=== PATIENT | female | born 1940 | race Caucasian/White ===

== ENCOUNTER → 2021-05-02 08:26 | Outpatient (BNVA) | payer MEDICARE, SELFPAY | PROVIDERS: PCP Family Medicine; Visit Provider Internal Medicine Rheumatology | DX: M05.79 Rheumatoid arthritis with rheumatoid factor of multiple sites without organ or systems involvement (principal); Z79.899 Other long term (current) drug therapy; Z11.59 Encounter for screening for other viral diseases; Z11.1 Encounter for screening for respiratory tuberculosis; R68.2 Dry mouth, unspecified; I73.00 Raynaud's syndrome without gangrene; Z71.85 Encounter for immunization safety counseling; M19.90 Unspecified osteoarthritis, unspecified site | CPT/HCPCS: 36415; 71046; 73130; 73630; 80076; 82306; 82565; 85025; 85651; 86038; 86140; 86200; 86480; 86704; 86803; 87340; 99204 ==

== ENCOUNTER 2021-05-02 10:38 | Outpatient (CLI) | payer MEDICARE, SELFPAY ==
--- NOTE | 2021-05-02 10:47 | XRR_ITS ---
PROCEDURE INFORMATION: Exam: XR Left Foot Exam date and time: 05/02/2021 10:47 AM Age: 80 years old Clinical indication: Chronic pain. Osteoarthritis of the feet/ankles. Diagnosed with rheumatoid arthritis. TECHNIQUE: Imaging protocol: XR Left foot. Views: 3 or more views. COMPARISON: No relevant prior studies available. FINDINGS: Bones/joints: Mild degenerative changes at the 1st tarsometatarsal and metatarsophalangeal joints. Mild to moderate scattered degenerative changes in the midfoot. Plantar calcaneal spur. Probable calcific tendinosis of the distal Achilles. No tibiotalar joint effusion. No fracture, dislocation or subluxation. Soft tissues: No significant soft tissue swelling. XR/XR foot LT min 3V* [id number] IMPRESSION: 1. Mild degenerative changes at the 1st tarsometatarsal and metatarsophalangeal joints. 2. Mild to moderate scattered degenerative changes in the midfoot. 3. Plantar calcaneal spur. 4. Probable calcific tendinosis of the distal Achilles. 5. No acute fracture.
--- NOTE | 2021-05-02 10:47 | XRR_ITS ---
PROCEDURE INFORMATION: Exam: XR Right Hand Exam date and time: 05/02/2021 10:47 AM Age: 80 years old Clinical indication: Osteoarthritis of the hands. Diagnosed with rheumatoid arthritis. TECHNIQUE: Imaging protocol: XR Right hand. Views: 3 or more views. COMPARISON: No relevant prior studies available. FINDINGS: Bones/joints: Apparent lucent lesion in the proximal phalanx of the index finger only identified on the lateral view. There is an apparent lucent lesion in the proximal 5th metacarpal. Moderate degenerative changes at the triscaphe and 1st metacarpophalangeal joints. Additional [id number] scattered degenerative changes are noted most prominent at the distal interphalangeal joints and 2nd metacarpophalangeal joint. The 1st carpometacarpal joint is fused. Chondrocalcinosis is noted. The scapholunate and lunotriquetral intervals are maintained. The bones appear demineralized. Soft tissues: There is soft tissue swelling adjacent to the distal interphalangeal joints. XR/XR hand RT min 3V* [id number] IMPRESSION: 1. Moderate degenerative changes at the triscaphe and 1st metacarpophalangeal joints. Additional [id number]-sa-csowgaid scattered degenerative changes are noted most prominent at the distal interphalangeal joints and 2nd metacarpophalangeal joint. 2. Apparent lucent lesion in the proximal phalanx of the index finger only identified on the lateral view. There is an apparent lucent lesion in the proximal 5th metacarpal. Recommend CT to better characterize. 3. Chondrocalcinosis. 4. The bones appear demineralized.
--- NOTE | 2021-05-02 10:47 | XRR_ITS ---
PROCEDURE INFORMATION: Exam: XR Left Hand Exam date and time: 05/02/2021 10:47 AM Age: 80 years old Clinical indication: Osteoarthritis of the hands. Diagnosed with rheumatoid arthritis. TECHNIQUE: Imaging protocol: XR Left hand. Views: 3 or more views. COMPARISON: No relevant prior studies available. FINDINGS: Bones/joints: Probable old nondisplaced fracture of the proximal 1st metacarpal with mild residual deformity. Correlate for tenderness. Moderate to advanced degenerative changes at the triscaphe and 1st carpometacarpal joints. Mild degenerative changes at the distal interphalangeal joints. There are [id number]-cr-[id number] degenerative changes at the 1st and 2nd metacarpophalangeal joints. An ossicle adjacent to the distal ulna likely reflects remote trauma. Chondrocalcinosis is noted. No acute fracture, dislocation or subluxation is seen. The scapholunate and lunotriquetral intervals are maintained. Soft tissues: There is dorsal soft tissue swelling at the level of the metacarpophalangeal joints. XR/XR hand LT min 3V* [id number] IMPRESSION: 1. Variable degenerative changes as above. 2. Probable old nondisplaced fracture of the proximal 1st metacarpal with mild residual deformity. Correlate for tenderness. 3. Dorsal soft tissue swelling. 4. Chondrocalcinosis.
--- NOTE | 2021-05-02 10:47 | XRR_ITS ---
PROCEDURE INFORMATION: Exam: XR Chest Exam date and time: 05/02/2021 10:47 AM Age: 80 years old Clinical indication: Osteoarthritis. Prior left breast surgery for tumor. Diagnosed with rheumatoid arthritis. Chronic pain. TECHNIQUE: Imaging protocol: XR of the chest. Views: 2 views. COMPARISON: No relevant prior studies available. FINDINGS: Lungs: There are bibasilar nodules. A nodule at the right base measures 1.2 cm. A nodule at the left base measures 0.6 cm. Possible patchy hazy infiltrate in the left costophrenic angle. Pleural spaces: No pleural effusion. No pneumothorax. Heart/Mediastinum: The heart appears enlarged. No gross evidence of pneumomediastinum. Bones/joints: No gross fracture. XR/XR chest 2V* [id number] IMPRESSION: 1. Bibasilar nodules measuring up to 1.2 cm. 2. Possible patchy hazy infiltrate in the left costophrenic angle. 3. The heart appears enlarged. 4. Recommend CT chest to further assess.
--- NOTE | 2021-05-02 10:47 | XRR_ITS ---
PROCEDURE INFORMATION: Exam: XR Right Foot Exam date and time: 05/02/2021 10:47 AM Age: 80 years old Clinical indication: Chronic pain. Osteoarthritis of the feet/ankles. Diagnosed with rheumatoid arthritis. TECHNIQUE: Imaging protocol: XR Right foot. Views: 3 or more views. COMPARISON: No relevant prior studies available. FINDINGS: Bones/joints: There is deformity involving the proximal phalanges of the 2nd and 5th toes likely reflecting remote trauma. There is deformity of the diaphysis of the 3rd metatarsal that is likely chronic. Moderate to advanced osteoarthritis at the 1st metacarpophalangeal joint. Nepp-gn-[id number] scattered degenerative changes in the midfoot. Posterior and plantar calcaneal spurs. No tibiotalar joint effusion. Curvilinear calcification along the dorsal aspect of the distal talus that could reflect a dystrophic calcification or fracture fragment. No acute fracture, dislocation or subluxation is seen. Soft tissues: No significant soft tissue swelling. XR/XR foot RT min 3V* [id number] IMPRESSION: 1. Curvilinear calcification along the dorsal aspect of the distal talus that could reflect a dystrophic calcification or fracture fragment. Correlate for tenderness. 2. Moderate to advanced osteoarthritis at the 1st metacarpophalangeal joint. 3. Zjiy-ln-ptutufqi scattered degenerative changes in the midfoot. 4. Posterior and plantar calcaneal spurs.
[2021-05-02 11:45] LABS: Basophils % 0.4 %; Eosinophils # 0.1 10^3/uL (0.0-0.8); Eosinophils % 1.6 %; Hematocrit 40.3 % (37.0-47.0); Hemoglobin 13.3 g/dL (11.5-15.3); Lymphocytes # 1.2 10^3/uL (0.8-4.8); Lymphocytes % 15.7 %; Mean Corpuscular Hemoglobin 32.1 pg (28.0-34.0); Mean Corpuscular Volume 97.3 fl (81-99); Monocytes # 0.6 10^3/uL (0.2-0.9); Monocytes % 8.2 %; Neutrophils # 5.52 10^3/uL (1.8-7.7); Neutrophils % 73.8 %; Nucleated Red Blood Cells % 0 %; Platelet Count 353 10^3/cmm (130-400); Red Blood Count 4.14 10^6/uL (4.1-5.3); Red Cell Distribution Width 13.6 % (12.1-15.1); White Blood Count 7.5 10^3/uL (4.0-10.0)
[2021-05-02 12:06] LABS: Alanine Aminotransferase 13 U/L (0-33); Albumin Level 4.1 g/dL (3.5-5.2); Alkaline Phosphatase 87 IU/L (35-105); Aspartate Amino Transferase 15 U/L (0-32); C Reactive Protein 6.1 mg/L (0.0-4.9); Erythrocyte Sedimentation Rate 12 mm/hr (0-15); Globulin 2.3 g/dL (1.3-4.6); Total Bilirubin 0.2 mg/dL (0.15-1.2); Total Protein 6.4 g/dL (6.6-8.7)
[2021-05-02 12:21] LABS: 25 Hydroxy Vitamin D 58 ng/mL (30-100)
[2021-05-02 12:25] LABS: Hepatitis B Core AB, Total Non-Reactive (Nonreactive); Hepatitis B Surface Antigen Non-Reactive (Nonreactive); Hepatitis C Virus Antibody Non-Reactive (Nonreactive)
[2021-05-03 15:19] LABS: Cyclic Citrullinated Peptide <16 UNITS
[2021-05-04 11:38] LABS: Anti-Nuclear Antibody Pattern Nuclear, Nucleolar; Anti-Nuclear Antibody Screen POSITIVE (NEGATIVE)
[2021-05-04 13:02] LABS: Quantiferon Mitogen 8.16 IU/mL; Quantiferon Nil 0.03 IU/mL; Quantiferon Plus TB1 0.01 IU/mL; Quantiferon Plus TB2 0.01 IU/mL; Quantiferon TB Gold NEGATIVE (NEGATIVE)
== END 2021-05-02 10:39 | disposition home or self-care (01) ==
PROVIDERS: PCP Family Medicine; Visit Provider Internal Medicine Rheumatology
DX: M19.90 Unspecified osteoarthritis, unspecified site (principal); Z79.899 Other long term (current) drug therapy; Z11.59 Encounter for screening for other viral diseases; Z11.1 Encounter for screening for respiratory tuberculosis
CPT/HCPCS: 36415; 71046; 73130; 73630; 80076; 82306; 82565; 85025; 85651; 86038; 86140; 86200; 86480; 86704; 86803; 87340

== ENCOUNTER 2021-05-31 10:04 | Outpatient (CLI) | payer MEDICARE, SELFPAY ==
[2021-05-31 11:35] LABS: Basophils % 0.4 %; Eosinophils # 0.1 10^3/uL (0.0-0.8); Eosinophils % 1.3 %; Hematocrit 40.4 % (37.0-47.0); Hemoglobin 13.1 g/dL (11.5-15.3); Lymphocytes # 1.2 10^3/uL (0.8-4.8); Lymphocytes % 14.5 %; Mean Corpuscular HGB Conc 32.4 g/dL (30.0-36.0); Mean Corpuscular Hemoglobin 31.6 pg (28.0-34.0); Mean Corpuscular Volume 97.6 fl (81-99); Mean Platelet Volume 9.3 fL (7.4-10.4); Monocytes # 0.7 10^3/uL (0.2-0.9); Monocytes % 8.1 %; Neutrophils % 75.1 %; Nucleated Red Blood Cells % 0 %; Platelet Count 336 10^3/cmm (130-400); Red Blood Count 4.14 10^6/uL (4.1-5.3); Red Cell Distribution Width 13.7 % (12.1-15.1)
[2021-05-31 12:02] LABS: Alanine Aminotransferase 14 U/L (0-33); Albumin Level 4.1 g/dL (3.5-5.2); Alkaline Phosphatase 95 IU/L (35-105); Aspartate Amino Transferase 16 U/L (0-32); C Reactive Protein 6.3 mg/L (0.0-4.9); Globulin 2.3 g/dL (1.3-4.6); Total Bilirubin 0.2 mg/dL (0.15-1.2); Total Protein 6.4 g/dL (6.6-8.7)
[2021-06-01 12:07] LABS: COMPLEMENT, TOTAL (CH50) >60 U/mL (31-60)
[2021-06-01 13:23] LABS: CENTROMERE B ANTIBODY <1.0 NEG AI (<1.0 NEG); JO-1 ANTIBODY <1.0 NEG AI (<1.0 NEG); RNP ANTIBODY <1.0 NEG AI (<1.0 NEG); SCL-70 ANTIBODY <1.0 NEG AI (<1.0 NEG); SJOGREN'S ANTIBODY (SS-A) <1.0 NEG AI (<1.0 NEG); SM ANTIBODY <1.0 NEG AI (<1.0 NEG); SS-B <1.0 NEG AI (<1.0 NEG)
[2021-06-01 14:47] LABS: COMPLEMENT COMPONENT C3C 118 mg/dL; COMPLEMENT COMPONENT C4C 27 mg/dL
[2021-06-01 15:06] LABS: THYROID PEROXIDASE ANTIBODIES <1 IU/mL (<9)
[2021-06-02 16:36] LABS: ANA PATTERN Nuclear, Nucleolar; ANA SCREEN, IFA POSITIVE (NEGATIVE); Anti-Nuclear AB Pattern #2 Nuclear, Speckled; Anti-Nuclear Antibody Titer #2 1:40 titer
[2021-06-04 12:03] LABS: DNA AB (DS) CRITHIDIA,IFA NEGATIVE (NEGATIVE)
== END 2021-05-31 10:05 | disposition home or self-care (01) ==
LOC: LAB 10:26
PROVIDERS: PCP Family Medicine; Visit Provider Internal Medicine Rheumatology
DX: M19.90 Unspecified osteoarthritis, unspecified site (principal); Z79.899 Other long term (current) drug therapy; M05.79 Rheumatoid arthritis with rheumatoid factor of multiple sites without organ or systems involvement; R76.8 Other specified abnormal immunological findings in serum
CPT/HCPCS: 80076; 82565; 85025; 86140; 86160; 86162; 86235; 86255; 86376

== ENCOUNTER → 2021-08-08 09:38 | Outpatient (BNVA) | payer MEDICARE, SELFPAY | PROVIDERS: PCP Family Medicine; Visit Provider Internal Medicine Rheumatology | DX: M05.79 Rheumatoid arthritis with rheumatoid factor of multiple sites without organ or systems involvement (principal); Z79.899 Other long term (current) drug therapy; I73.00 Raynaud's syndrome without gangrene; R76.8 Other specified abnormal immunological findings in serum; Z71.85 Encounter for immunization safety counseling | CPT/HCPCS: 99214 ==

== ENCOUNTER → 2021-11-29 10:13 | Outpatient (BNVA) | payer MEDICARE, SELFPAY | PROVIDERS: PCP Family Medicine; Visit Provider Internal Medicine Rheumatology | DX: M05.79 Rheumatoid arthritis with rheumatoid factor of multiple sites without organ or systems involvement (principal); Z79.899 Other long term (current) drug therapy; Z71.85 Encounter for immunization safety counseling; I73.00 Raynaud's syndrome without gangrene; R76.8 Other specified abnormal immunological findings in serum; M19.90 Unspecified osteoarthritis, unspecified site | CPT/HCPCS: 99214 ==

== ENCOUNTER → 2022-03-21 11:10 | Outpatient (BNVA) | payer MEDICARE, SELFPAY | PROVIDERS: PCP Family Medicine; Visit Provider Internal Medicine Rheumatology | DX: M05.79 Rheumatoid arthritis with rheumatoid factor of multiple sites without organ or systems involvement (principal); R76.8 Other specified abnormal immunological findings in serum; Z71.85 Encounter for immunization safety counseling; Z79.899 Other long term (current) drug therapy; I73.00 Raynaud's syndrome without gangrene; R68.2 Dry mouth, unspecified; M25.512 Pain in left shoulder | CPT/HCPCS: 20610; 99214; J1030 ==

== ENCOUNTER → 2022-06-28 10:12 | Outpatient (BNVA) | payer MEDICARE, SELFPAY | PROVIDERS: PCP Family Medicine; Visit Provider Internal Medicine Rheumatology | DX: J84.9 Interstitial pulmonary disease, unspecified (principal); M05.79 Rheumatoid arthritis with rheumatoid factor of multiple sites without organ or systems involvement; Z79.899 Other long term (current) drug therapy; R76.8 Other specified abnormal immunological findings in serum; Z71.85 Encounter for immunization safety counseling; I73.00 Raynaud's syndrome without gangrene; R68.2 Dry mouth, unspecified | CPT/HCPCS: 36415; 85025 ==

== ENCOUNTER → 2022-06-28 10:12 | Outpatient (BNVA) | payer MEDICARE, SELFPAY | PROVIDERS: PCP Family Medicine; Visit Provider Internal Medicine Rheumatology | DX: M05.79 Rheumatoid arthritis with rheumatoid factor of multiple sites without organ or systems involvement (principal); J84.9 Interstitial pulmonary disease, unspecified; Z79.899 Other long term (current) drug therapy; Z71.85 Encounter for immunization safety counseling; I73.00 Raynaud's syndrome without gangrene; R68.2 Dry mouth, unspecified | CPT/HCPCS: 99214 ==

== ENCOUNTER 2022-07-25 10:21 | Outpatient (CLI) | payer MEDICARE, SELFPAY ==
[2022-07-25 11:00] LABS: Basophils % 0.5 %; Eosinophils # 0.1 10^3/uL (0.0-0.8); Eosinophils % 1.4 %; Hematocrit 36.2 % (37.0-47.0); Hemoglobin 11.4 g/dL (11.5-15.3); Lymphocytes # 0.9 10^3/uL (0.8-4.8); Lymphocytes % 13.4 %; Mean Corpuscular HGB Conc 31.5 g/dL (30.0-36.0); Mean Corpuscular Hemoglobin 30.6 pg (28.0-34.0); Mean Corpuscular Volume 97.1 fl (81-99); Mean Platelet Volume 8.8 fL (7.4-10.4); Monocytes # 0.4 10^3/uL (0.2-0.9); Monocytes % 6.5 %; Neutrophils # 5.19 10^3/uL (1.8-7.7); Neutrophils % 77.9 %; Nucleated Red Blood Cells % 0 %; Platelet Count 382 10^3/cmm (130-400); Red Blood Count 3.73 10^6/uL (4.1-5.3); Red Cell Distribution Width 16.9 % (12.1-15.1); White Blood Count 6.7 10^3/uL (4.0-10.0)
[2022-07-25 11:23] LABS: Alanine Aminotransferase 15 U/L (0-33); Albumin Level 4.2 g/dL (3.5-5.2); Alkaline Phosphatase 69 U/L (35-105); Aspartate Amino Transferase 17 U/L (0-32); C Reactive Protein 9.5 mg/L (0.0-4.9); Globulin 2.2 g/dL (1.3-4.6); Total Bilirubin 0.4 mg/dL (0.15-1.2); Total Protein 6.4 g/dL (6.6-8.7)
== END 2022-07-25 10:22 | disposition home or self-care (01) ==
LOC: LAB 10:27
PROVIDERS: PCP Family Medicine; Visit Provider Internal Medicine Rheumatology
DX: M05.79 Rheumatoid arthritis with rheumatoid factor of multiple sites without organ or systems involvement (principal); Z79.899 Other long term (current) drug therapy
CPT/HCPCS: 36415; 80076; 82565; 85025; 86140

== ENCOUNTER → 2022-10-04 09:09 | Outpatient (BNVA) | payer MEDICARE, SELFPAY | PROVIDERS: PCP Family Medicine; Visit Provider Internal Medicine Rheumatology | DX: Z79.899 Other long term (current) drug therapy (principal); M05.79 Rheumatoid arthritis with rheumatoid factor of multiple sites without organ or systems involvement; R76.8 Other specified abnormal immunological findings in serum; Z71.85 Encounter for immunization safety counseling; R68.2 Dry mouth, unspecified; I73.00 Raynaud's syndrome without gangrene | CPT/HCPCS: 99214 ==

== ENCOUNTER → 2022-11-14 09:22 | Outpatient (BNVA) | payer MEDICARE, SELFPAY | PROVIDERS: PCP Family Medicine; Referring Provider Family Medicine; Visit Provider Psychiatry & Neurology Neurology | DX: R26.89 Other abnormalities of gait and mobility (principal); R20.0 Anesthesia of skin; M06.9 Rheumatoid arthritis, unspecified; G24.9 Dystonia, unspecified | CPT/HCPCS: 99203 ==

== ENCOUNTER → 2023-01-03 11:20 | Outpatient (BNVA) | payer MEDICARE, SELFPAY | PROVIDERS: PCP Family Medicine; Visit Provider Internal Medicine Rheumatology | DX: Z79.899 Other long term (current) drug therapy (principal); M05.79 Rheumatoid arthritis with rheumatoid factor of multiple sites without organ or systems involvement; R76.8 Other specified abnormal immunological findings in serum; Z71.85 Encounter for immunization safety counseling; I73.00 Raynaud's syndrome without gangrene; R68.2 Dry mouth, unspecified | CPT/HCPCS: 99214 ==

== ENCOUNTER → 2023-01-10 09:13 | Outpatient (BNVA) | payer MEDICARE, SELFPAY | PROVIDERS: PCP Family Medicine; Visit Provider Psychiatry & Neurology Neurology | DX: R26.81 Unsteadiness on feet (principal) | CPT/HCPCS: 99212 ==

== ENCOUNTER → 2023-04-11 09:33 | Outpatient (BNVA) | payer MEDICARE, SELFPAY | PROVIDERS: PCP Family Medicine; Visit Provider Internal Medicine Rheumatology | DX: Z79.899 Other long term (current) drug therapy (principal); M05.79 Rheumatoid arthritis with rheumatoid factor of multiple sites without organ or systems involvement; M25.519 Pain in unspecified shoulder | CPT/HCPCS: 20610; 36415; 80076; 82565; 85025; 86140; 99214 ==

== ENCOUNTER → 2023-09-06 11:28 | Outpatient (BNVA) | payer MEDICARE, SELFPAY | PROVIDERS: PCP Family Medicine; Visit Provider Psychiatry & Neurology Neurology | DX: R26.81 Unsteadiness on feet (principal); I73.00 Raynaud's syndrome without gangrene; R20.0 Anesthesia of skin | CPT/HCPCS: 99212 ==

== ENCOUNTER → 2023-10-23 13:00 | Outpatient (BNVA) | payer MEDICARE, SELFPAY | PROVIDERS: PCP Family Medicine; Visit Provider Internal Medicine Rheumatology | DX: M05.79 Rheumatoid arthritis with rheumatoid factor of multiple sites without organ or systems involvement (principal); R76.8 Other specified abnormal immunological findings in serum; Z71.85 Encounter for immunization safety counseling; Z79.899 Other long term (current) drug therapy; I73.00 Raynaud's syndrome without gangrene; R68.2 Dry mouth, unspecified; Z11.59 Encounter for screening for other viral diseases; Z11.1 Encounter for screening for respiratory tuberculosis | CPT/HCPCS: 80076; 82565; 85025; 85651; 86140; 99214 ==